=== PATIENT | female | born 2000 | race Two or more races ===

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

== ENCOUNTER 2018-01-12 14:55 | Inpatient (IN) | payer BC, SELFPAY ==
[2018-01-12 14:18] VITALS: BMI 25.6
[2018-01-12 14:46] LABS: ROM Internal Control Test YES-OK TO RESULT pt. (Internal QC)
[2018-01-12 14:47] LABS: ROM Patient Test POSITIVE (Negative)
[2018-01-12] MEDS: Lactated Ringers 1,000 ML 50 ML IV (15:00)
[2018-01-12 15:17] LABS: Differential Indicated MANUAL DIFF; Hemoglobin 11.9 g/dl (12.0-15.0); Mean Corpuscular Hgb 31.9 pg (27.0-32.0); Mean Corpuscular Volume 93.8 fL (81-99); Mean Platelet Vol. 11.2 fl (6.2-12.0); POSITIVE COUNT YES; POSITIVE DIFFERENTIAL NO; POSITIVE MORPHOLOGY YES; Platelet Count 203 K/mm3 (150-450); RBC Distribution Width CV 12.7 % (11.6-14.6); RBC Distribution Width SD 42.1 fl (35.1-43.9); Red Blood Count 3.73 M/mm3 (4.2-5.4); White Blood Count 21.3 K/mm3 (4.4-11.0)
[2018-01-12] MEDS: Oxytocin 30 units/NS 500 ml 30 UNITS/500 ML IV.SOLN IV (15:30)
--- NOTE | 2018-01-12 15:39 | HP.PCM_ITS ---
Problem List (1) premature rupture of membranes (PPROM) with unknown onset of labor Status: Acute History of Present Illness Date of Admission: 01/12/18 Chief Complaint: Leaking fluid, fever, contractions The patient is a 17 year old F [ at 28w3d ega with sudden onset of cramping and leaking amniotic fluid since 1330 today. Reports partner also ill with fevers, nausea and vomiting. care otherwise unremarkable. No chills, headache, vomiting.] Past Medical History Allergies Penicillins Allergy (Verified 01/12/18 14:56) Unknown Sulfa (Sulfonamide Antibiotics) Allergy (Verified 01/12/18 14:56) Unknown Home Medications: Ambulatory Orders Medication Instructions Recorded Vits [Prenatabs FA] 1 tablet PO DAILY 01/12/18 Surgical History: no surgical history Psychiatric History: No pertinent psych hx [employer]HER History: No pertinent FR[employer] CRUSHER history Lives: Spouse/ Significant Other Smoking Status: Current some day smoker Alcohol: None Drugs: None - *Family History Maternal History Items: No pertinent history Paternal History Items: No pertinent history Review of Systems Constitutional: Reports: Fever. Denies: Chills Eyes: Denies: Blurred vision Cardiovascular: Denies: Chest Pain, Chest Pressure, Chest Tightness, Edema Respiratory: Denies: Cough, Shortness of Breath Gastrointestinal: Reports: Abdominal Pain - cramping Genitourinary: Denies: Dysuria, Frequency VTE Information - Inpt Only VTE Present on Admission: No Reason prophylaxis not ordered:: Treatment Not Indicated Patient Problems: Active and Suspected Problems premature rupture of membranes (PPROM) with unknown onset of labor (Acute) Subjective: Appears feverish. No acute discomfort but feeling contractions. Objective: Temp 101F HR 120-130s BP normal FHR 150s moderate variability. - Physical Exam General: Alert, Oriented x3, Cooperative, No apparent distress Lungs: Clear to auscultation, Normal air movement Cardiovascular: Regular rate, Regular Rhythm Abdomen: Soft, Non Tender, Non-Distended, Gravid, Appropriate for Gestational Age Extremities: No edema Skin: No rashes Neurological: Neuro grossly intact Psych/Mental Status: Normal Affect Comment: CE 8 cm bloody show present, vertex presentation Weight: 140 lb Body Mass Index (BMI) 25.6 Laboratory Tests Past 24 Hrs 01/12/18 01/12/18 01/12/18 14:35 14:55 15:02 WBC 21.3 H RBC 3.73 L Hgb 11.9 L Hct 35.0 L MCV 93.8 MCH 31.9 MCHC 34.0 RDW 12.7 RDW Differential 42.1 Plt Count 203 MPV 11.2 Neut % (Auto) Not Reportable Absolute Neuts (auto) Not Reportable Total Counted Pending Vag Amniotic Fld Detect POSITIVE H Group B Strep DNA Pending Specimen Comment Pending Blood Type Antibody Screen 01/12/18 15:02 WBC RBC Hgb Hct MCV MCH MCHC RDW RDW Differential Plt Count MPV Neut % (Auto) Absolute Neuts (auto) Total Counted Vag Amniotic Fld Detect Group B Strep DNA Specimen Comment Blood Type Pending Antibody Screen Pending Assessment/Plan All Active Problems premature rupture of membranes (PPROM) with unknown onset of labor (Acute) PPROM likely due to chorioamnionitis. Plan to induce labor due to chorio and advanced labor. Betamethasone given. Magnesium sulfate given for neuroprotection 4 grams. Started on clindamycin and gentamicin. Will start pitocin augmentation. transport team is called and enroute for transport of as soon as possible after delivery. Diagnosis and findings explained to Louisa.
[2018-01-12 15:48] LABS: Lymphocyte 10 % (19-41); Myelocyte 1 (0-0); Neutrophil-Band 4 % (0-5); Neutrophil-Segmented 85 % (47-70); Total Cells Counted 100 (MANUAL DIFF)
[2018-01-12 15:51] LABS: Absolute Lymphocyte Count 2.13 X10^3/ul (0.83-4.51)
[2018-01-12] MEDS: Betamethasone/Betamethasone 30 MG/5 ML Vial 12 MG IM (16:13)
--- NOTE | 2018-01-12 16:19 | DCINST_ITS ---
Discharge Diet: No Restrictions Discharge Activity: Return to Normal Activity, May Drive, May Shower Return to work on:: 03/14/18 May resume sexual activity in: 4-6 weeks Call your doctor if your incision/area has: Sudden Increased Bleeding, Increased Pain/ Swelling, Foul Smelling Discharge Call your doctor if you observe: Fever of 101 or Higher, Inability to urinate, Inability to have a bowel movement, Using more than one pad per hour, Shortness of breath, Chest pain, Calf discomfort, Uncontrolled pain Cleanse incision/area with: Soap & Water Additional Instructions: If you experience any of the following, contact your healthcare provider. * Bleeding that soaks a pad every hour for 2 hours * Fever 100.4 or higher * Unrelieved incision or abdominal pain * Swelling, redness, discharge or bleeding from your incision or episiotomy site * Your incision begins to separate * Problems urinating (including inability to urinate or burning while urinating). * Visual changes * Severe headache * Flu-like symptoms * Pain or redness in one of both of your breasts * Pain, warmth, tenderness or swelling in your legs, especially the calf area * Frequent nausea and vomiting * Symptoms of depression or anxiety If you experience any of the following, call 911 or go to the nearest Emergency Room. * Chest pain * Problems breathing * Seizure activity * Partial or complete paralysis of a body part, slurred speech, weakness or drooping of the face, or a sudden inability to walk or hold your balance Allergies/Adverse Reactions: Allergies Penicillins Allergy (Verified 01/12/18 14:56) Unknown Sulfa (Sulfonamide Antibiotics) Allergy (Verified 01/12/18 14:56) Unknown Medications to take at Discharge Ibuprofen 600 mg PO 4X/DAY #30 tab 01/12/18 Vits [Prenatabs FA ] 1 tablet PO DAILY 01/12/18 The following prescriptions were given: Ibuprofen 600 mg PO 4X/DAY #30 tab Please Follow Up With: Andrez Farah MD When: 6 weeks Test Results: Test results from this visit will be discussed in further detail at your follow- up appointment, if applicable. Proposed Discharge Date: 01/12/18
[2018-01-12 16:33] LABS: Group B Strep DNA By PCR Negative (Negative); Internal Control PASS; Probe Check PASS; Specimen Processing Control PASS
[2018-01-12] MEDS: Oxytocin 30 units/NS 500 ml 30 UNITS/500 ML IV.SOLN 334 UNITS IV (16:36)
--- NOTE | 2018-01-12 16:50 | PCM.OB.VAG ---
- Problem List (1) premature rupture of membranes (PPROM) with unknown onset of labor Status: Acute Vaginal Delivery Maternal Presentation: Active Labor, - - PPROM Presented at 28w3d ega with SROM, fever, and active labor Method of Induction: Pitocin Medical Reason for Induction: - - Chorioamnionitis Amniotic Membrane Rupture Type: Spontaneous at home Rupture of Membrane time: 1330 Amniotic Fluid Description: Clear Final FABIOLA: 04/03/18 Final FABIOLA Source: US <20 weeks Gestational age: 29 Weeks and 2 Days doctor who attended delivery (if requested by OB): Anthony Cook Date of Procedure: 01/12/18 Pre-Operative Diagnosis: labor Post-Operative Diagnosis: same Surgery/ Procedure Performed: Spontaneous Vaginal Delivery Type of Anesthesia: None Description of Procedure: Progressed over about 1 1/2 hours to FD then pushed for about 10 minutes to deliver a live female . The cord was immediately clamped and cut and baby taken to warmer for care. Cord blood gases were obtained. The placenta delivered spontanouesly with a membranous cord insertion. There appeared to be a small abrupted area of the placenta. The uterus contracted well. Inspection revealed an intact cervix, upper and lower vagina and perineum. APGARs unavailable. Placental Delivery Description: Spontaneous Placenta Disposition: Sent with transport team Percentage of Placenta Abruption: 5 Cord Vessel Description: 3 Vessels Nuchal Cord Compression: Without compression Cord Gases drawn per routine: ABG, VBG Cord Entanglement: None Estimated Blood Loss: 400cc Infant A gender: Female Episiotomy Description: None Laceration: None Medications given after delivery: IV Pitocin Complications: None
[2018-01-12] MEDS: Acetaminophen 325 MG Tablet PO (17:03)
[2018-01-12] MEDS: Oxytocin 30 units/NS 500 ml 30 UNITS/500 ML IV.SOLN 167 UNITS IV (17:06)
[2018-01-12 18:06] LABS: Amphetamine Urine VISTA NEGATIVE (<1000 ng/mL); Barbiturate Urine VISTA NEGATIVE (< 200 ng/mL); Benzodiazepine Urine VISTA NEGATIVE (< 200 ng/mL); Cocaine Urine VISTA NEGATIVE (< 300 ng/mL); Ecstacy Urine VISTA NEGATIVE (< 500 ng/mL); Methadone Urine VISTA NEGATIVE (< 300 ng/mL); PCP Urine VISTA NEGATIVE (< 25 ng/mL); THC Urine VISTA NEGATIVE (< 50 ng/mL); Vista UDS pH Range 6
[2018-01-12] MEDS: 0.9% Saline Lock 10 ML Syringe IV (19:24)
[2018-01-12 19:28] VITALS: BP 107/66; PULSE 107; RESP 16; TEMP 37; O2SAT 98
--- NOTE | 2018-01-12 20:22 | NURSING ---
[facility] on unit 2012 for transport to [facility]. report given to transport team by this RN. Transport team assumed care at this time. pt transferred to [facility]. Off unit at 2020
[2018-01-16 12:53] LABS: Pathologist Review Reviewed
== END 2018-01-12 20:21 | disposition short-term general hospital (02) | DRG 805 ==
LOC: WPOUT 14:58
PROVIDERS: Admitting Provider Obstetrics & Gynecology; Referring Provider Obstetrics & Gynecology; Visit Provider Obstetrics & Gynecology
DX: O42.013 Preterm premature rupture of membranes, onset of labor within 24 hours of rupture, third trimester (principal); O41.1230 Chorioamnionitis, third trimester, not applicable or unspecified; Z37.0 Single live birth; O45.93 Premature separation of placenta, unspecified, third trimester; O99.334 Smoking (tobacco) complicating childbirth; Z3A.28 28 weeks gestation of pregnancy
CPT/HCPCS: 59025; 59050; 80307; 84112; 85025; 86850; 86900; 87040; 87081; 87086; 87653; 99218; J7120; A4216; G0378; J0702

== ENCOUNTER 2021-01-21 23:33 | Emergency (ER) | payer BC, SELFPAY ==
[2021-01-21 23:34] VITALS: BP 135/79; PULSE 96; RESP 16; TEMP 36.6; O2SAT 97; BMI 28.3
--- NOTE | 2021-01-21 23:47 | RAD_ITS ---
STUDY: X-RAY CHEST REASON FOR EXAM: Female, 20 years old. covid TECHNIQUE: Single AP portable view of the chest. COMPARISON: None. FINDINGS: The lungs are clear and expanded. There is no demonstrated pleural abnormality. Normal size heart. Normal mediastinum and walt. Normal visualized pulmonary arteries. Normal visualized aortic arch and descending thoracic aorta. Normal visualized thoracic spine. Normal visualized ribs, clavicles, and shoulders. There is no demonstrated abnormality of the visualized soft tissue structures of the upper abdomen. RAD/Chest 1 View IMPRESSION: Normal x-ray examination of the chest. Electronically Signed: Rigo Hernández MD at 0:17 EST Tel , Service support ,
--- NOTE | 2021-01-21 23:48 | EX.ED.DYSGE1 ---
HPI History of Present Illness Chief Complaint: General Illness Informant: patient Narrative Narrative: Patient started with nasal congestion slight sore throat on Tuesday about 5 days prior. She is then developed cough. She really has no significant dyspnea. She is able to eat and drink but states when she swallows food it just feels funny to her. Its not painful. She is able to do it. But she also has decreased appetite. She has some mild nausea. She has some mild diarrhea. She is able to drink liquids without any difficulty. She was tested positive for Covid a couple days ago. Her has similar symptoms. She denies fevers or myalgias. She has had lost taste and smell and thinks this is affecting this. She also thinks her anxiety about Covid is making this worse. No chronic medical conditions No medications Allergy to penicillin and sulfa Only surgeries wisdom teeth Lives with PFSH PFS Medical History no medical history Home Medications NK 01/21/21 [History Last Taken Unknown] Allergy/AdvReac Type Severity Reaction Status Date / Time Penicillins Allergy Unknown Verified 01/12/18 14:56 Sulfa (Sulfonamide Allergy Unknown Verified 01/12/18 14:56 Antibiotics) Surgical History no surgical history Social History Smoking Status: Current every day smoker tobacco type: cigarettes ROS ROS ED Constitutional Constitutional ED: Denies chills, fever(s) or subjective Eyes Eyes: Denies blurry vision ENT ENT ED: Reports rhinorrhea and sore throat; Denies ear pain Cardiovascular Cardiovascular: Denies chest pain Respiratory/Chest Respiratory/Chest: Reports cough; Denies dyspnea or sputum Gastrointestinal Gastrointestinal: Reports diarrhea and nausea; Denies abdominal pain or vomiting Genitourinary Genitourinary ED: Denies dysuria or hematuria Musculoskeletal Musculoskeletal: Denies myalgias Integumentary Denies rash Neurologic Neurologic: Denies headache(s) or weakness Psychiatric Psychiatric: Reports anxiety Endocrine Endocrinology: Denies polydipsia or polyuria Allergic/Immunologic Allergic/Immunologic ED: Denies urticaria EXAM Physical Exam Const Vital Signs: 01/21/21 23:34 Temperature 97.8 F Temperature Source Temporal Pulse Rate 96 Respiratory Rate 16 Blood Pressure 135/79 H Blood Pressure Mean 97 Pulse Ox 97 Oxygen Delivery Method Room Air Positive well nourished and well developed General Appearance ED: well developed and NAD HEENT Reports dry mucous membranes HEENT Narrative: Patient is voice is normal. She looks comfortable. Swallowing mechanism looks normal. Mucous membranes are somewhat dry. Tonsils are just minimally on the large side but they are not red. They have a normal color. There is no exudate. There is no lesions. There is no stridor when listening to the throat. There is no lymphadenopathy. Mouth ED: Yes dry mucous membranes Mouth: dry mucous membranes Eyes PERRL Neck no lymphadenopathy and no JVD General: Negative for tenderness Resp normal respiratory effort and clear to auscultation bilaterally Effort and Inspection: Negative for pain with movement Auscultation: Negative for rales, rhonchi or wheezes Cardio regular rate and regular rhythm GI normal to inspection, nondistended, normoactive bowel sounds and non-tender Palpation: soft Back/Spine no CVA tenderness Extremity normal to inspection Neuro Sensorium / Orientation: alert Psych mental status grossly normal Skin no rashes or lesions noted MDM MDM MDM Narrative Medical decision making narrative: Patient's 1 view x-ray looked at by me shows no sign of pneumothorax. No typical pattern seen with Covid. No sign of pneumonia. Cardiac silhouette looks normal. Patient is rechecked. Lidocaine did calm down her throat a bit. She drank any indication to do a CAT scan of her neck. I think she is a bit of a dry mouth. We discussed about increasing fluids and increasing some solid foods. We discussed foods that are easier and harder to swallow. Think she is safe to go home. I do not think she needs Decadron. Her sats are normal here. Discharge Plan Triage Chief Complaint: General Illness ED Provider: Hemant Kebede Dx/Rx/DC Orders Clinical Impression: COVID Instructions: Caring for Someone Who Has COVID-19 Prescriptions: No Action NK RF: 0 Primary Care Provider: Care Physician,No Primary Referrals: Yenifer Campbell DO [STAFF PHYSICIAN] - 1 Week if not improving Care Physician,No Primary [Primary Care Provider] - Disposition Disposition: Home, Self Care
[2021-01-21 23:54] VITALS: O2SAT 96
[2021-01-22 01:06] VITALS: BP 135/60; PULSE 87; RESP 18; O2SAT 99
== END 2021-01-22 01:06 | disposition home or self-care (01) ==
PROVIDERS: Emergency Provider Emergency Medicine
DX: U07.1 COVID-19 (principal); F17.210 Nicotine dependence, cigarettes, uncomplicated
CPT/HCPCS: 71045; 99283

== ENCOUNTER 2021-02-21 21:29 | Emergency (ER) | payer BC, SELFPAY ==
[2021-02-21 21:30] VITALS: BP 133/87; PULSE 89; RESP 14; TEMP 36.7; O2SAT 96; BMI 29.8
--- NOTE | 2021-02-21 22:06 | EDS_ITS ---
HPI History of Present Illness Chief Complaint: Nausea/Vomiting Informant: patient Onset/Context/Timing Onset: Hours (Few hours ago) Context: Sudden Onset Timing: Continuous and Waxes and wanes Quality: Burning Location: Chest Worsened by: Nothing Relieved by: Nothing Narrative Narrative: Patient presents with nausea, vomiting, diarrhea, and chest pain that began a few hours prior to arrival. Patient describes her pain as burning. Patient states it is over the epigastric area and radiates up into her chest. Patient states it has been waxing and waning. Patient states nothing makes it worse and nothing makes it better. Patient denies any fevers or chills. Pat ient does admit to a sore throat from the vomiting. Patient denies any shortness of breath. Patient denies any headaches, lightheadedness, or dizziness. PFSH PFSH Medical History no medical history no medical history Home Medications NK 01/21/21 [History Last Taken Unknown] Allergy/AdvReac Type Severity Reaction Status Date / Time Penicillins Allergy Unknown Verified 02/21/21 21:30 Sulfa (Sulfonamide Allergy Unknown Verified 02/21/21 21:30 Antibiotics) Surgical History Hx of wisdom tooth extraction Social History Smoking Status: Current every day smoker tobacco type: cigarettes ROS ROS ED Constitutional Constitutional ED: Denies chills or fever(s) Eyes Eyes: Denies blurry vision or change in vision ENT ENT ED: Denies rhinorrhea or sore throat Cardiovascular Cardiovascular: Reports chest pain; Denies palpitations Respiratory/Chest Respiratory/Chest: Denies cough or dyspnea Gastrointestinal Gastrointestinal: Reports abdominal pain, diarrhea, nausea and vomiting Genitourinary Genitourinary ED: Denies dysuria or hematuria Musculoskeletal Musculoskeletal: Denies back pain or neck pain Integumentary Denies abscess or rash Neurologic Neurologic: Denies headache(s) or weakness Allergic/Immunologic Allergic/Immunologic ED: Denies mouth swelling or urticaria EXAM Physical Exam Const Vital Signs: 02/21/21 21:30 02/21/21 21:49 Temperature 98.1 F Temperature Source Temporal Pulse Rate 89 Respiratory Rate 14 Respiratory Effort Normal Non-Labored Respiratory Pattern Normal Blood Pressure 133/87 H Blood Pressure Mean 102 Pulse Ox 96 Oxygen Delivery Method Room Air Positive well nourished and well developed General Appearance ED: well developed HEENT Reports moist mucous membranes Neck supple and no JVD Resp normal respiratory effort and clear to auscultation bilaterally Cardio regular rate, regular rhythm and no murmurs GI normal to inspection, nondistended, normoactive bowel sounds and non-tender Palpation: soft Extremity normal to inspection General Extremety ED: Negative for edema or tenderness General Extremity: Negative for edema Neuro oriented x3, CN's II-XII intact bilaterally and no sensory deficits noted Sensorium / Orientation: alert Motor Exam: strength 5/5 throughout Psych mental status grossly normal Skin no rashes or lesions noted MDM MDM MDM Narrative Medical decision making narrative: CBC was within normal limits. Comprehensive metabolic profile was within normal limits. Lipase was normal. Serum hCG was negative. Urinalysis does not show any evidence of urinary tract infection. Patient was ordered a GI cocktail which she declined. Patient states she has had these in the past and does not like the way it makes her feel. Patient was instructed to eat bland food. Patient was instructed to follow-up with her primary care physician in 5 to 7 days. Patient understood and was agreeable with the plan. All questions were answered. Lab Data Attestation: I reviewed the patient's lab results. Labs: Laboratory Results - last 24 hr 02/21/21 02/21/21 02/21/21 21:50 21:50 21:50 WBC 9.8 RBC 4.36 Hgb 13.7 Hct 40.6 MCV 93.1 MCH 31.4 MCHC 33.7 RDW Std Deviation 41.8 RDW Coeff of Jesus Manuel 12.2 Plt Count 275 MPV 11.1 Immature Gran % (Auto) 0.600 Neut % (Auto) 71.8 H Lymph % (Auto) 17.9 L Snyder % (Auto) 6.1 Eos % (Auto) 3.1 Baso % (Auto) 0.5 Absolute Neuts (auto) 7.1 Absolute Lymphs (auto) 1.76 Nucleated RBC % 0 Sodium 139 Potassium 3.8 Chloride 107 Carbon Dioxide 26.0 Anion Gap 6 BUN 11 Creatinine 0.80 Estim Creat Clear Calc 86.50 Est GFR (MDRD) Af Amer 114 Est GFR (MDRD) Non-Af 94 BUN/Creatinine Ratio 13.7 Glucose 97 Calcium 9.3 Total Bilirubin 0.30 AST 24 ALT 22 Alkaline Phosphatase 95 Total Protein 7.8 Albumin 4.0 Globulin 3.8 Albumin/Globulin Ratio 1.1 Lipase 88 Serum , Qual NEGATIVE Urine Color Urine Clarity Urine pH Ur Specific [place] Urine Protein Urine Glucose (UA) Urine Ketones Urine Occult Blood Urine Nitrite Urine Bilirubin Urine Urobilinogen Ur Leukocyte Esterase Urine RBC Urine WBC Ur Squamous Epith Cells Urine Bacteria Urine Mucus 02/21/21 21:50 WBC RBC Hgb Hct MCV MCH MCHC RDW Std Deviation RDW Coeff of Jesus Manuel Plt Count MPV Immature Gran % (Auto) Neut % (Auto) Lymph % (Auto) Snyder % (Auto) Eos % (Auto) Baso % (Auto) Absolute Neuts (auto) Absolute Lymphs (auto) Nucleated RBC % Sodium Potassium Chloride Carbon Dioxide Anion Gap BUN Creatinine Estim Creat Clear Calc Est GFR (MDRD) Af Amer Est GFR (MDRD) Non-Af BUN/Creatinine Ratio Glucose Calcium Total Bilirubin AST ALT Alkaline Phosphatase Total Protein Albumin Globulin Albumin/Globulin Ratio Lipase Serum , Qual Urine Color Straw Urine Clarity Clear Urine pH 7.0 Ur Specific [place] 1.005 Urine Protein Negative Urine Glucose (UA) Normal Urine Ketones Negative Urine Occult Blood Negative Urine Nitrite Negative Urine Bilirubin Negative Urine Urobilinogen Normal Ur Leukocyte Esterase Negative Urine RBC 0 SEEN Urine WBC 0 SEEN Ur Squamous Epith Cells 0 SEEN Urine Bacteria 0 SEEN Urine Mucus 0 SEEN Discharge Plan Triage Chief Complaint: Nausea/Vomiting ED Provider: Cornelio Chan Dx/Rx/DC Orders Clinical Impression: Gastritis Instructions: ED Gastritis (Adult) Prescriptions: No Action NK RF: 0 Primary Care Provider: Care Physician,No Primary Referrals: Maik Hogue MD [STAFF PHYSICIAN] - 5-7 Days Care Physician,No Primary [Primary Care Provider] - Disposition Disposition: Home, Self Care
[2021-02-21 22:19] LABS: Bacteria 0 SEEN /hpf (None Seen); Mucous, Urine 0 SEEN /hpf (<or=2+); Red Blood Cells-Urine 0 SEEN /hpf (0-5); Squamous Epithelial Cells - UA 0 SEEN /hpf (5-10); White Blood Cells 0 SEEN /hpf (0-5)
[2021-02-21] MEDS: 0.9% Normal Saline 1,000 ML 1000 ML IV (22:19)
[2021-02-21 22:20] LABS: Absolute Lymphocyte Count 1.76 X10^3/uL (0.83-4.51); Absolute Neutrophil Count 7.1 X10^3/uL (2.0-7.7); Basophil# 0.05 X10^3/uL; Basophil% 0.5 % (0-1); Eosinophils% 3.1 % (0-5); Hematocrit 40.6 % (37-47); Hemoglobin 13.7 g/dL (12.0-15.0); Lymphocyte # 1.76 X10^3/ul (0.83-4.51); Lymphocyte % 17.9 % (19-41); Mean Corp Hgb Conc 33.7 g/dL (32-36); Mean Corpuscular Hgb 31.4 pg (27.0-32.0); Mean Corpuscular Volume 93.1 fL (81-99); Mean Platelet Vol. 11.1 fl (6.2-12.0); Monocyte% 6.1 % (0-10); NRBC Flagged by Analyzer 0 % (0-5); Neutrophil # 7.06 X10^3/uL (2.7-7.7); Neutrophil % 71.8 % (47-70); Platelet Count 275 K/mm3 (150-450); RBC Distribution Width CV 12.2 % (11.6-14.6); RBC Distribution Width SD 41.8 fl (35.1-43.9); Red Blood Count 4.36 M/mm3 (4.2-5.4); White Blood Count 9.8 K/mm3 (4.4-11.0)
[2021-02-21 22:21] LABS: Color, Urine Straw (Yellow); Glucose, Dipstick Normal (Normal); Ketone-Dipstick Negative (Negative); Leukocyte Esterase-Dipstick Negative /ul (Negative); Nitrite-Dipstick Negative (Negative); Occult Blood-Urine Negative /ul (Negative); Protein-Dipstick Negative (Negative); Specific Gravity, Urine 1.005 (1.002-1.030); Urine Bilirubin Dipstick Negative (Negative); Urine Clarity Clear (Clear); Urine Urobilinogen Normal (Normal)
[2021-02-21 22:52] LABS: Internal QC Validated? YES +Cl - CLEAR BKGD; Pregnancy, Serum, hCG Quali. NEGATIVE Negative
[2021-02-21 22:56] LABS: ALB/GLOB Ratio 1.1 RATIO (0.9-2.4); AST(SGOT) 24 U/L (15-37); Alanine Aminotransfer ALT/SGPT 22 U/L (13-56); Alkaline Phosphatase 95 U/L (45-117); Anion Gap 6 (5-15); BUN 11 mg/dL (7-18); BUN/Creat Ratio 13.7 RATIO (10-20); Calcium,Total 9.3 mg/dL (8.5-10.1); Chloride 107 mmol/L (98-107); EST Glomerular Filtration Rate 94 mL/min (>60); Est Glom Filt Rate - Afr Amer 114 mL/min (>60); Globulin 3.8 g/dL (2.2-4.2); Glucose 97 mg/dL (74-106); Lipase 88 U/L (73-393); Potassium 3.8 mmol/L (3.5-5.1); Protein, Total 7.8 g/dL (6.4-8.2); Sodium Level 139 mmol/L (136-145)
[2021-02-21 23:39] VITALS: BP 118/75; PULSE 78; O2SAT 98
== END 2021-02-21 23:41 | disposition home or self-care (01) ==
PROVIDERS: Emergency Provider Emergency Medicine
DX: K29.70 Gastritis, unspecified, without bleeding (principal); F17.210 Nicotine dependence, cigarettes, uncomplicated
CPT/HCPCS: 80053; 81001; 83690; 84703; 85025; 96360; 99284; J7030; A4216

== ENCOUNTER 2021-02-24 20:57 | Emergency (ER) | payer BC, SELFPAY ==
[2021-02-24 20:58] VITALS: BP 151/96; PULSE 116; RESP 14; TEMP 36.6; O2SAT 98; BMI 28.3
[2021-02-24 22:02] LABS: Bacteria 0 SEEN /hpf (None Seen); Mucous, Urine 0 SEEN /hpf (<or=2+); Red Blood Cells-Urine 0 SEEN /hpf (0-5); Squamous Epithelial Cells - UA 0 SEEN /hpf (5-10); White Blood Cells 0 SEEN /hpf (0-5)
[2021-02-24 22:06] LABS: Color, Urine Yellow (Yellow); Glucose, Dipstick Normal (Normal); Ketone-Dipstick Negative (Negative); Leukocyte Esterase-Dipstick Negative /ul (Negative); Nitrite-Dipstick Negative (Negative); Occult Blood-Urine Negative /ul (Negative); Protein-Dipstick Negative (Negative); Specific Gravity, Urine 1.005 (1.002-1.030); Urine Bilirubin Dipstick Negative (Negative); Urine Clarity Clear (Clear); Urine Urobilinogen Normal (Normal)
[2021-02-24 22:12] LABS: Absolute Lymphocyte Count 0.61 X10^3/uL (0.83-4.51); Absolute Neutrophil Count 12.3 X10^3/uL (2.0-7.7); Basophil# 0.03 X10^3/uL; Basophil% 0.2 % (0-1); Eosinophil# 0.08 X10^3/uL; Eosinophils% 0.6 % (0-5); Hemoglobin 14.8 g/dL (12.0-15.0); Lymphocyte # 0.61 X10^3/ul (0.83-4.51); Lymphocyte % 4.5 % (19-41); Mean Corp Hgb Conc 33.6 g/dL (32-36); Mean Corpuscular Hgb 31.2 pg (27.0-32.0); Mean Corpuscular Volume 92.6 fL (81-99); Monocyte# 0.53 X10^3/uL; Monocyte% 3.9 % (0-10); NRBC Flagged by Analyzer 0 % (0-5); Neutrophil # 12.27 X10^3/uL (2.7-7.7); Neutrophil % 90.5 % (47-70); Platelet Count 245 K/mm3 (150-450); RBC Distribution Width SD 41.1 fl (35.1-43.9); Red Blood Count 4.75 M/mm3 (4.2-5.4); White Blood Count 13.6 K/mm3 (4.4-11.0)
[2021-02-24 22:23] LABS: Internal QC Validated? YES +Cl - CLEAR BKGD; Pregnancy, Serum, hCG Quali. NEGATIVE Negative
[2021-02-24 22:25] LABS: Anion Gap 9 (5-15); BUN 9 mg/dL (7-18); BUN/Creat Ratio 12.1 RATIO (10-20); Calcium,Total 9.2 mg/dL (8.5-10.1); Chloride 104 mmol/L (98-107); Creatinine, Serum 0.74 mg/dL (0.55-1.02); EST Glomerular Filtration Rate 103 mL/min (>60); Est Glom Filt Rate - Afr Amer 125 mL/min (>60); Estimated Creatinine Clearance 93.51 ml/min; Glucose 94 mg/dL (74-106); Potassium 3.5 mmol/L (3.5-5.1); Sodium Level 140 mmol/L (136-145)
--- NOTE | 2021-02-24 23:23 | CT_ITS ---
STUDY: CT ABDOMEN AND PELVIS WITH CONTRAST REASON FOR EXAM: Female, 21 years old. Diffuse abdominal pain, vomiting RADIATION DOSAGE (If Supplied By Facility): CTDIvol = ( 10.04 ) mGy, DLP = ( 681.12 ) mGycm TECHNIQUE: Transaxial images were obtained from the dome of the diaphragm to the symphysis pubis without oral contrast. IV 100mL [id number]-[id number] was administered. Sagittal and coronal images were reconstructed. Individualized dose optimization techniques were used for this CT. COMPARISON: None. FINDINGS: The visualized lung bases are unremarkable. The visualized portions of the heart are within normal limits. Normal liver. Normal gallbladder and extrahepatic biliary system. Normal spleen. Normal pancreas. Normal bilateral adrenal glands. Normal right kidney. Normal left kidney. Normal visualized stomach. There are mildly distended loops of small bowel present. There is a fluid-filled appearance of the cecum. There is a mildly thick-walled appearance of the distal small bowel. There is small mesenteric lymph nodes measuring up to 6.2 mm. There is mild to moderate stool in the colon. The appendix is visualized and appears normal. Normal abdominal aorta. Normal inferior vena cava. Normal retroperitoneum. Normal urinary bladder. Normal visualized uterus. There is a small umbilical hernia containing fat. There is minimal spondylosis at the level of L5-S1. CT/Abdomen/Pelvis W IV Cont ONLY IMPRESSION: Findings are suspicious for enteritis. No appendicitis. No hydronephrosis. Electronically Signed: Arianna Aquino MD at 0:18 EST Tel , Service support ,
--- NOTE | 2021-02-24 23:24 | EDS_ITS ---
HPI HPI - GI History of Present Illness Chief Complaint: Abd Pain Informant: patient Abdominal Pain/Flank Pain Onset: Days (4) Context: Gradual Onset Timing: Continuous Quality: Aching Location: Diffuse (across mid abd, periumbilical) Current Severity: Moderate Maximum Severity: Moderate Worsened by: - (vomiting) Relieved by: Nothing Nausea/Vomiting/Emesis GI Symptom: Positive for Nausea and Vomiting Onset: Days (4) Quality: Positive for Nonbilious; Negative for Blood streaks, Coffee ground and Hematemesis Severity: Severe Diarrhea/Melena/Hematochezia GI Symptom: Positive for Diarrhea; Negative for Melena and Hematochezia Stool Quality: Positive for Loose and Watery Severity: Moderate (2-3 per day) Associated Symptoms Associated Symptoms: Negative for Dysuria, Frequency, Hematuria and Urgency PFSH PFSH Medical History no medical history no medical history Home Medications dicyclomine 20 mg PO Q6H PRN #20 capsule 02/25/21 [Rx Last Taken Unknown] ondansetron 8 mg PO Q8H PRN PRN #20 tab 02/25/21 [Rx Last Taken Unknown] Allergy/AdvReac Type Severity Reaction Status Date / Time Penicillins Allergy Unknown Verified 02/24/21 20:59 Sulfa (Sulfonamide Allergy Unknown Verified 02/24/21 20:59 Antibiotics) Surgical History Hx of wisdom tooth extraction Social History Smoking Status: Current every day smoker tobacco type: cigarettes ROS ROS ED Constitutional Constitutional ED: Reports chills, subjective and other Details: unk if any fevers Eyes Eyes: Denies change in vision or diplopia ENT ENT ED: Denies rhinorrhea or sore throat Cardiovascular Cardiovascular: Denies chest pain or palpitations Respiratory/Chest Respiratory/Chest: Denies cough or dyspnea Gastrointestinal Gastrointestinal: Reports as per HPI, abdominal pain, diarrhea, nausea and vomiting Genitourinary Genitourinary ED: Denies dysuria or hematuria Musculoskeletal Musculoskeletal: Denies back pain or neck pain Integumentary Denies abscess or rash Neurologic Neurologic: Denies headache(s), paresthesias or weakness Psychiatric Psychiatric: Denies anxiety or suicidal thoughts EXAM Physical Exam Const Vital Signs: 02/24/21 20:58 02/25/21 01:57 Temperature 98 F Temperature Source Temporal Pulse Rate 116 H Respiratory Rate 14 16 Blood Pressure 151/96 H Blood Pressure Mean 114 Pulse Ox 98 Oxygen Delivery Method Room Air Positive well nourished and well developed Constitutional Narrative: Well-appearing, nad General Appearance ED: well developed and NAD HEENT Reports moist mucous membranes normocephalic and atraumatic Eyes PERRL and EOMs intact bilaterally Neck full ROM and supple Resp normal respiratory effort and clear to auscultation bilaterally Cardio regular rate, regular rhythm and no murmurs GI non-distended GI Narrative: mildly tender periumbilical only; no McBurney's pt or RUQ/LUQ/LLQ tenderness Auscultation: normoactive bowel sounds Palpation: soft Back/Spine no CVA tenderness General Back: other FROM Extremity normal to inspection General Extremety ED: Negative for edema, pulses abnormal or tenderness General Extremity: Negative for edema or pulses abnormal Neuro oriented x3, CN's II-XII intact bilaterally, moves all extremities, no focal motor deficits, no sensory deficits noted and gait normal Sensorium / Orientation: awake and alert Motor Exam: strength 5/5 throughout Skin no rashes or lesions noted and no wounds MDM MDM MDM Narrative Medical decision making narrative: Patient was given IV fluids, Zofran, dicyclomine, she is feeling much better. Given her mild leukocytosis and repeat visit, a performed a CT scan. It was nonspecific, showing signs of enteritis. Given that, certainly possible and most likely she has a viral etiology of her illness that should be self-limiting. She has had no blood or symptoms of invas linda enteritis. Therefore at this time I recommend supportive care and follow- up, we discussed reasons to return she comfortable with that plan prescribed dicyclomine and ondansetron to use as needed. Lab Data Attestation: I reviewed the patient's lab results. Labs: Laboratory Results - last 24 hr 02/24/21 02/24/21 02/24/21 21:56 22:05 22:05 WBC 13.6 H RBC 4.75 Hgb 14.8 Hct 44.0 MCV 92.6 MCH 31.2 MCHC 33.6 RDW Std Deviation 41.1 RDW Coeff of Jesus Manuel 12.0 Plt Count 245 MPV 11.0 Immature Gran % (Auto) 0.300 Neut % (Auto) 90.5 H Lymph % (Auto) 4.5 L [place] % (Auto) 3.9 Eos % (Auto) 0.6 Baso % (Auto) 0.2 Absolute Neuts (auto) 12.3 H Absolute Lymphs (auto) 0.61 L Nucleated RBC % 0 Sodium 140 Potassium 3.5 Chloride 104 Carbon Dioxide 27.0 Anion Gap 9 BUN 9 Creatinine 0.74 Estim Creat Clear Calc 93.51 Est GFR (MDRD) Af Amer 125 Est GFR (MDRD) Non-Af 103 BUN/Creatinine Ratio 12.1 Glucose 94 Calcium 9.2 Serum , Qual Urine Color Yellow Urine Clarity Clear Urine pH 7.0 Ur Specific [place] 1.005 Urine Protein Negative Urine Glucose (UA) Normal Urine Ketones Negative Urine Occult Blood Negative Urine Nitrite Negative Urine Bilirubin Negative Urine Urobilinogen Normal Ur Leukocyte Esterase Negative Urine RBC 0 SEEN Urine WBC 0 SEEN Ur Squamous Epith Cells 0 SEEN Urine Bacteria 0 SEEN Urine Mucus 0 SEEN 02/24/21 22:05 WBC RBC Hgb Hct MCV MCH MCHC RDW Std Deviation RDW Coeff of Jesus Manuel Plt Count MPV Immature Gran % (Auto) Neut % (Auto) Lymph % (Auto) [place] % (Auto) Eos % (Auto) Baso % (Auto) Absolute Neuts (auto) Absolute Lymphs (auto) Nucleated RBC % Sodium Potassium Chloride Carbon Dioxide Anion Gap BUN Creatinine Estim Creat Clear Calc Est GFR (MDRD) Af Amer Est GFR (MDRD) Non-Af BUN/Creatinine Ratio Glucose Calcium Serum , Qual NEGATIVE Urine Color Urine Clarity Urine pH Ur Specific [place] Urine Protein Urine Glucose (UA) Urine Ketones Urine Occult Blood Urine Nitrite Urine Bilirubin Urine Urobilinogen Ur Leukocyte Esterase Urine RBC Urine WBC Ur Squamous Epith Cells Urine Bacteria Urine Mucus Radiography Diagnostic Testing: Clinical Impression(s) from Imaging Studies Abdomen/Pelvis CT 02/24/21 23:23 IMPRESSION: Findings are suspicious for enteritis. No appendicitis. No hydronephrosis. Electronically Signed: Arianna Aquino MD at 0:18 EST Tel , Service support , Discharge Plan Triage Chief Complaint: Abd Pain ED Provider: Alex Matta Dx/Rx/DC Orders Clinical Impression: Gastroenteritis Instructions: ED Food Poison Or Gastroenteritis Prescriptions: New ondansetron [ondansetron] 4 MG tablet 8 mg PO Q8H PRN PRN (Reason: Nausea) Qty: 20 RF: 0 dicyclomine 10 MG capsule 20 mg PO Q6H PRN (Reason: abdominal discomfort) Qty: 20 RF: 0 Primary Care Provider: Care Physician,No Primary Referrals: Marian Ge [NON-STAFF] - 3-5 Days if not improving Care Physician,No Primary [Primary Care Provider] - Disposition Disposition: Home, Self Care
[2021-02-24] MEDS: Ondansetron 4 MG/2 ML Vial IV (23:46)
[2021-02-24] MEDS: Dicyclomine 20 MG/2 ML Vial IM (23:46)
[2021-02-24] MEDS: 0.9% Normal Saline 1,000 ML 999 ML IV (23:46)
[2021-02-25 01:57] VITALS: RESP 16
[2021-02-25 03:37] VITALS: BP 120/64; PULSE 90; RESP 16; O2SAT 97
== END 2021-02-25 03:40 | disposition home or self-care (01) ==
PROVIDERS: Emergency Provider Emergency Medicine
DX: K52.9 Noninfective gastroenteritis and colitis, unspecified (principal); F17.210 Nicotine dependence, cigarettes, uncomplicated
CPT/HCPCS: 74177; 80048; 81001; 84703; 85025; 96361; 96372; 96374; 99283; J7030; Q9967; A4216; J2405

== ENCOUNTER → 2021-09-01 | Outpatient (CLI) | payer BC, SELFPAY ==
[2021-09-03 22:07] LABS: Chlamydia By Nucleic Acid AMP Negative (Negative)
[2021-09-03 22:23] LABS: Gonococcus By Nucleic Acid AMP Negative (Negative)
[2021-09-04 15:55] LABS: HPV Reflexed? NOT INDICATED
== END | disposition home or self-care (01) ==
LOC: LABSPEC 16:41
PROVIDERS: Visit Provider Obstetrics & Gynecology
DX: Z12.4 Encounter for screening for malignant neoplasm of cervix (principal)
CPT/HCPCS: 87491; 87591; 88175; G0145

== ENCOUNTER → 2021-10-22 | Outpatient (CLI) | payer BC, SELFPAY ==
[2021-10-22 16:31] LABS: Absolute Neutrophil Count 9.1 X10^3/uL (2.0-7.7); Basophil# 0.03 X10^3/uL; Basophil% 0.3 % (0-1); Eosinophil# 0.16 X10^3/uL; Eosinophils% 1.4 % (0-5); Hematocrit 35.5 % (37-47); Hemoglobin 11.9 g/dL (12.0-15.0); Mean Corp Hgb Conc 33.5 g/dL (32-36); Mean Corpuscular Hgb 31.4 pg (27.0-32.0); Mean Corpuscular Volume 93.7 fL (81-99); Mean Platelet Vol. 12.1 fl (6.2-12.0); Monocyte# 0.53 X10^3/uL; Monocyte% 4.6 % (0-10); NRBC Flagged by Analyzer 0 % (0-5); Neutrophil # 9.11 X10^3/uL (2.7-7.7); Neutrophil % 79.2 % (47-70); Platelet Count 228 K/mm3 (150-450); RBC Distribution Width CV 12.5 % (11.6-14.6); RBC Distribution Width SD 43.2 fl (35.1-43.9); Red Blood Count 3.79 M/mm3 (4.2-5.4); White Blood Count 11.5 K/mm3 (4.4-11.0)
[2021-10-23 11:25] LABS: HIV - WCH Non-Reactive (Nonreactive); Hepatitis B Surface Antigen Non-Reactive (Nonreactive); Hepatitis C Antibody Non-Reactive (Nonreactive); Rubella IgG Reactive (Nonreactive); Syphilis Antibodies Non-reactive
[2021-10-24 09:38] LABS: V-Zoster IgG (Immunity) 288 index (Immune >165)
== END | disposition home or self-care (01) ==
LOC: WOBLAB 14:17
PROVIDERS: Visit Provider Student in an Organized Health Care Education/Training Program
DX: Z34.82 Encounter for supervision of other normal pregnancy, second trimester (principal)
CPT/HCPCS: 36415; 85025; 86703; 86762; 86780; 86787; 86803; 87086; 87340

== ENCOUNTER → 2022-01-20 | Outpatient (CLI) | payer BC, SELFPAY ==
[2022-01-20 15:07] LABS: Absolute Lymphocyte Count 1.45 X10^3/uL (0.83-4.51); Absolute Neutrophil Count 10.4 X10^3/uL (2.0-7.7); Basophil# 0.09 X10^3/uL; Basophil% 0.7 % (0-1); Eosinophil# 0.16 X10^3/uL; Eosinophils% 1.2 % (0-5); Hemoglobin 11.7 g/dL (12.0-15.0); Lymphocyte # 1.45 X10^3/ul (0.83-4.51); Lymphocyte % 10.8 % (19-41); Mean Corp Hgb Conc 32.5 g/dL (32-36); Mean Corpuscular Hgb 30.1 pg (27.0-32.0); Mean Corpuscular Volume 92.5 fL (81-99); Mean Platelet Vol. 11.6 fl (6.2-12.0); Monocyte% 5.2 % (0-10); NRBC Flagged by Analyzer 0 % (0-5); Neutrophil # 10.38 X10^3/uL (2.7-7.7); Neutrophil % 77.5 % (47-70); Platelet Count 240 K/mm3 (150-450); RBC Distribution Width CV 13.1 % (11.6-14.6); RBC Distribution Width SD 44.5 fl (35.1-43.9); Red Blood Count 3.89 M/mm3 (4.2-5.4); White Blood Count 13.4 K/mm3 (4.4-11.0)
[2022-01-20 15:14] LABS: Glucose Challenge Gest 1H 50g 128 mg/dL (70-140)
== END | disposition home or self-care (01) ==
LOC: WOBLAB 14:37
PROVIDERS: Visit Provider Obstetrics & Gynecology
DX: Z34.83 Encounter for supervision of other normal pregnancy, third trimester (principal)
CPT/HCPCS: 36415; 82950; 85025

== ENCOUNTER → 2022-03-09 | Outpatient (CLI) | payer OTHER, SELFPAY ==
[2022-03-09 17:00] LABS: Absolute Lymphocyte Count 1.83 X10^3/uL (0.83-4.51); Absolute Neutrophil Count 11.7 X10^3/uL (2.0-7.7); Basophil# 0.08 X10^3/uL; Basophil% 0.5 % (0-1); Eosinophil# 0.13 X10^3/uL; Eosinophils% 0.9 % (0-5); Hemoglobin 11.4 g/dL (12.0-15.0); Lymphocyte # 1.83 X10^3/ul (0.83-4.51); Lymphocyte % 12.4 % (19-41); Mean Corp Hgb Conc 32.6 g/dL (32-36); Mean Corpuscular Hgb 29.6 pg (27.0-32.0); Mean Corpuscular Volume 90.9 fL (81-99); Mean Platelet Vol. 11.8 fl (6.2-12.0); Monocyte# 0.62 X10^3/uL; Monocyte% 4.2 % (0-10); NRBC Flagged by Analyzer 0 % (0-5); Neutrophil # 11.71 X10^3/uL (2.7-7.7); Neutrophil % 79.4 % (47-70); Platelet Count 257 K/mm3 (150-450); RBC Distribution Width CV 13.6 % (11.6-14.6); RBC Distribution Width SD 44.7 fl (35.1-43.9); Red Blood Count 3.85 M/mm3 (4.2-5.4); White Blood Count 14.8 K/mm3 (4.4-11.0)
[2022-03-09 17:51] LABS: Syphilis Antibodies Non-reactive
== END | disposition home or self-care (01) ==
LOC: WOBLAB 16:12
PROVIDERS: Visit Provider Obstetrics & Gynecology
DX: Z34.83 Encounter for supervision of other normal pregnancy, third trimester (principal); Z36.85 Encounter for antenatal screening for Streptococcus B
CPT/HCPCS: 36415; 85025; 86780; 87081

== ENCOUNTER 2022-03-17 19:26 | Inpatient (IN) | payer OTHER, SELFPAY ==
[2022-03-17] VITALS (7 sets, daily range): BP systolic 121–132; BP diastolic 70–75; PULSE 79–100; TEMP 36.4–37; O2SAT 96–98; BMI 32.8
[2022-03-17] MEDS: Lactated Ringers 1,000 ML 50 ML IV (20:20)
[2022-03-17 20:40] LABS: Absolute Lymphocyte Count 1.88 X10^3/uL (0.83-4.51); Absolute Neutrophil Count 12.3 X10^3/uL (2.0-7.7); Basophil# 0.07 X10^3/uL; Basophil% 0.5 % (0-1); Eosinophil# 0.11 X10^3/uL; Eosinophils% 0.7 % (0-5); Hematocrit 34.1 % (37-47); Hemoglobin 11.1 g/dL (12.0-15.0); Lymphocyte # 1.88 X10^3/ul (0.83-4.51); Lymphocyte % 12.2 % (19-41); Mean Corp Hgb Conc 32.6 g/dL (32-36); Mean Corpuscular Hgb 29.3 pg (27.0-32.0); Mean Platelet Vol. 11.9 fl (6.2-12.0); Monocyte# 0.81 X10^3/uL; Monocyte% 5.2 % (0-10); NRBC Flagged by Analyzer 0 % (0-5); Neutrophil % 79.5 % (47-70); Platelet Count 238 K/mm3 (150-450); RBC Distribution Width CV 13.8 % (11.6-14.6); RBC Distribution Width SD 45.3 fl (35.1-43.9); Red Blood Count 3.79 M/mm3 (4.2-5.4); White Blood Count 15.5 K/mm3 (4.4-11.0)
[2022-03-17 20:40] LABS: Mucous, Urine 0 SEEN /hpf (<or=2+); Red Blood Cells-Urine 0 SEEN /hpf (0-5); Squamous Epithelial Cells - UA 0 SEEN /hpf (5-10)
[2022-03-17 20:53] LABS: Color, Urine Straw (Yellow); Glucose, Dipstick Normal (Normal); Ketone-Dipstick 5 mg/dl (Negative); Leukocyte Esterase-Dipstick 25 /ul (Negative); Nitrite-Dipstick Negative (Negative); Occult Blood-Urine Negative /ul (Negative); Protein-Dipstick Negative (Negative); Urine Bilirubin Dipstick Negative (Negative); Urine Clarity Clear (Clear); Urine Urobilinogen Normal (Normal)
[2022-03-17 20:56] LABS: Protein, Urine (Random) 7.6 mg/dL (<11.9); Protein:Creat Ratio 497 mg/g CRE (0-200)
[2022-03-17 20:58] LABS: ALB/GLOB Ratio 0.7 RATIO (0.9-2.4); AST(SGOT) 29 U/L (15-37); Alanine Aminotransfer ALT/SGPT 25 U/L (13-56); Albumin, Serum 2.8 g/dL (3.2-5.0); Alkaline Phosphatase 216 U/L (45-117); Anion Gap 8 (5-15); BUN 8 mg/dL (7-18); BUN/Creat Ratio 13.8 RATIO (10-20); Calcium,Total 8.8 mg/dL (8.5-10.1); Chloride 110 mmol/L (98-107); Creatinine, Serum 0.58 mg/dL (0.55-1.02); EST Glomerular Filtration Rate 136 mL/min (>60); Est Glom Filt Rate - Afr Amer 165 mL/min (>60); Estimated Creatinine Clearance 118.29 ml/min; Globulin 4.3 g/dL (2.2-4.2); Glucose 73 mg/dL (74-106); LDH 196 U/L (84-246); Potassium 3.3 mmol/L (3.5-5.1); Protein, Total 7.1 g/dL (6.4-8.2); Sodium Level 140 mmol/L (136-145)
[2022-03-17 21:07] LABS: Bacteria RARE /hpf (None Seen); White Blood Cells 0-5 SEEN /hpf (0-5)
[2022-03-17] MEDS: Oxytocin 15 Units/NS 250ml 15 UNITS/250 ML IV.SOLN 2 UNITS IV (22:18)
[2022-03-18] VITALS (16 sets, daily range): BP systolic 100–152; BP diastolic 48–89; PULSE 59–97; RESP 16–17; TEMP 36.5–37.7; O2SAT 96–98
[2022-03-18] MEDS: LACTATED RINGERS 500 ML 999 ML IV (01:05)
--- NOTE | 2022-03-18 01:57 | PCM.HP.BLA ---
History and Physical Date of Admission: 03/17/22 Chief complaint: Induction of labor Pree without severe features History present illness: 22-year-old G2, P1 at 37 weeks and 1 day on arrival with FABIOLA 04/06/2022 arrives for induction of labor for pre-E without severe features. Denies headache, vision change, chest pain, shortness of breath, nausea vomit, right upper quadrant pain. Patient states good movement. is complicated by preeclampsia without severe features and history of P PROM at 28 weeks Obstetrical history: G1: 28-week P PROM female 2 pounds 9 ounces G2: Current Past medical history: None Medications: vitamin Past surgical history: [place] teeth extraction Allergies: Sulfa, penicillin Social history: 1 pack/day smoker, denies alcohol or drug use Family history: Denies history DVT or PE Review of systems: Besides above pertinent positives a full review of systems was performed and found to be negative Physical exam: Vitals: Blood pressure 126/76 pulse 86 General: Normal-appearing no acute distress HEENT: Normocephalic/atraumatic no cervical lymphadenopathy Cardiac/respiratory: No use of accessory muscles, nonlabored breathing Abdomen: Soft, nontender, gravid Extremities: No peripheral edema normal peripheral pulses Psych: Normal affect normal demeanor nonpressured speech Labs: White blood cell count 15.5 hemoglobin 11.1 hematocrit 34.1% platelets 238. Sodium 140 potassium 3.3 creatinine 0.58 AST 29 ALT 25. Blood type a positive antibody negative Assessment and plan: 26-year-old G2, P1 at 37 weeks and 1 day for induction of labor with preeclampsia without severe features. Called by nursing initially with cervical exam and given Pitocin orders. Later called by nursing for delivery. Please refer to delivery note. Preeclampsia without severe features, asymptomatic. We will continue to monitor blood pressures. GBS negative
[2022-03-18] MEDS: miSOPROStol 200 MCG Tablet 1000 MCG RC (02:17)
--- NOTE | 2022-03-18 02:23 | EX.PCM.OBRPT ---
Vaginal Delivery Findings Description of Procedure: Arrived to room with bulging membranes and complete dilation, AROM thin meconium. Drafter Structural called. Normal spontaneous vaginal delivery of a viable female infant, vertex DONOVAN. Head and shoulders delivered with ease. Cord clamped and cut. Baby handed off to patient. Placenta delivered via cord traction and fundal massage. IV oxytocin initiated in order to facilitate uterine contractions. Cytotec at 1000 mcg given prophylactically with short second stage of labor. Placenta appeared intact, bedside ultrasound performed with thin endometrial lining. No lacerations noted. EBL 250 cc Apgars 8/9
[2022-03-18] MEDS: Acetaminophen 500 MG Tablet 1000 MG PO ×2 (03:04→22:24)
[2022-03-18] MEDS: Ibuprofen 600 MG Tablet PO ×2 (07:14→16:46)
[2022-03-19] VITALS: BP 112/48; PULSE 68; RESP 15; TEMP 36.6
[2022-03-19 04:30] VITALS: BP 122/69; PULSE 71; RESP 17; TEMP 36.7
[2022-03-19 06:07] LABS: Absolute Lymphocyte Count 1.86 X10^3/uL (0.83-4.51); Basophil# 0.05 X10^3/uL; Basophil% 0.5 % (0-1); Eosinophil# 0.22 X10^3/uL; Eosinophils% 2.2 % (0-5); Hemoglobin 10.9 g/dL (12.0-15.0); Lymphocyte # 1.86 X10^3/ul (0.83-4.51); Lymphocyte % 18.8 % (19-41); Mean Corpuscular Volume 90.9 fL (81-99); Mean Platelet Vol. 11.5 fl (6.2-12.0); Monocyte# 0.65 X10^3/uL; Monocyte% 6.6 % (0-10); NRBC Flagged by Analyzer 0 % (0-5); Neutrophil % 70.6 % (47-70); Platelet Count 216 K/mm3 (150-450); RBC Distribution Width CV 13.8 % (11.6-14.6); RBC Distribution Width SD 46.5 fl (35.1-43.9); Red Blood Count 3.63 M/mm3 (4.2-5.4); White Blood Count 9.9 K/mm3 (4.4-11.0)
[2022-03-19 06:34] LABS: ALB/GLOB Ratio 0.6 RATIO (0.9-2.4); AST(SGOT) 32 U/L (15-37); Alanine Aminotransfer ALT/SGPT 25 U/L (13-56); Albumin, Serum 2.2 g/dL (3.2-5.0); Alkaline Phosphatase 182 U/L (45-117); Anion Gap 7 (5-15); BUN 9 mg/dL (7-18); BUN/Creat Ratio 15.2 RATIO (10-20); Calcium,Total 8.4 mg/dL (8.5-10.1); Chloride 111 mmol/L (98-107); Creatinine, Serum 0.59 mg/dL (0.55-1.02); EST Glomerular Filtration Rate 133 mL/min (>60); Est Glom Filt Rate - Afr Amer 160 mL/min (>60); Estimated Creatinine Clearance 116.29 ml/min; Globulin 3.8 g/dL (2.2-4.2); Glucose 75 mg/dL (74-106); Potassium 3.8 mmol/L (3.5-5.1); Sodium Level 141 mmol/L (136-145)
--- NOTE | 2022-03-19 06:47 | PCM.PN.OB ---
Subjective Subjective Feeling well. No headaches or vision changes, chest pain or shortness of breath, nausea or vomiting. Lochia minimal. Breast-feeding. Objective Data Objective Data Vital Signs: Vital Signs Temp Pulse Resp BP Pulse Ox O2 Del Method 98.0 F 71 17 122/69 H 96 Room Air 03/19/22 04:30 03/19/22 04:30 03/19/22 04:30 03/19/22 04:30 03/18/22 16:41 03/18/22 16:41 Oxygen Delivery Method Room Air Weight: 81.374 kg Body Mass Index (BMI) 32.8 Intake & Output: Intake and Output for Last 24 Hours 03/17/22 03/18/22 03/19/22 23:59 23:59 23:59 Intake Total 1.1 / 1.1 1245.23 / 1245.23 Output Total 750 / 750 Balance 1.1 / 1.1 495.23 / 495.23 Lab / Micro Data Attestation: I reviewed the patient's lab results. Result Diagrams: 03/19/22 05:50 03/19/22 05:50 Labs: Laboratory Results - last 24 hr 03/19/22 05:50: Sodium 141, Potassium 3.8, Chloride 111 H, Carbon Dioxide 23.0, Anion Gap 7, BUN 9, Creatinine 0.59, Estim Creat Clear Calc 116.29, Est GFR (MDRD) Af Amer 160, Est GFR (MDRD) Non-Af 133, BUN/Creatinine Ratio 15.2, Glucose 75, Calcium 8.4 L, Total Bilirubin 0.20, AST 32, ALT 25, Alkaline Phosphatase 182 H, Total Protein 6.0 L, Albumin 2.2 L, Globulin 3.8, Albumin/Globulin Ratio 0.6 L 03/19/22 05:50: WBC 9.9, RBC 3.63 L, Hgb 10.9 L, Hct 33.0 L, MCV 90.9, MCH 30.0, MCHC 33.0, RDW Std Deviation 46.5 H, RDW Coeff of Jesus Manuel 13.8, Plt Count 216, MPV 11.5, Immature Gran % (Auto) 1.300 H, Neut % (Auto) 70.6 H, Lymph % (Auto) 18.8 L, [place] % (Auto) 6.6, Eos % (Auto) 2.2, Baso % (Auto) 0.5, Absolute Neuts (auto) 7.0, Absolute Lymphs (auto) 1.86, Nucleated RBC % 0 Physical Exam Const alert, oriented x3 and no apparent distress HEENT normocephalic Head and Scalp: atraumatic Neck full ROM Resp normal respiratory effort Cardio regular rate GI normal to inspection, nondistended, normoactive bowel sounds GI Narrative: Uterus 2 cm below umbilicus Back/Spine normal ROM Extremity normal to inspection Extremity Narrative: Minimal pedal edema Neuro no focal motor deficits and no sensory deficits noted Psych mental status grossly normal and affect normal Assessment & Plan (1) Pre-eclampsia: PLAN: day 1 status post . Complicated by preeclampsia without severe features based on elevated blood pressures and proteinuria. Reviewed diagnosis with patient this morning. Discussed that it is recommended for her to stay at least 48 hours if not longer depending on stability of blood pressures and symptoms. Discussed that she will need a blood pressure check next week in the office. Discussed risks of preeclampsia including stroke, [place], seizures. Patient understands risk. Very upset at needing to stay another day. Patient aware that if she were to leave today she would be leaving AGAINST MEDICAL ADVICE. She is discussing with her partner and will notify nursing. Understands all risks and recommendations. All questions answered. Patient and partner were in room for discussion.
[2022-03-19 09:32] VITALS: BP 132/74; PULSE 65; RESP 18; TEMP 36.6; O2SAT 97
[2022-03-19] MEDS: Acetaminophen 500 MG Tablet 1000 MG PO (09:38)
[2022-03-19 12:30] VITALS: BP 131/68; PULSE 73; RESP 18; TEMP 36.4
--- NOTE | 2022-03-19 15:14 | CASEMGMT ---
Social Work Reason for referral: hx of PPD History obtained from: chart review and MOB Met with MOB to complete assessment. Introduced self and role. FOB present in room and requested for assessment to be 1:1 with MOB. Both MOB and FOB agreed. MOB engaged in open conversation with this worker; calm, pleasant, friendly, appeared comfortable with baby. Discussed how MOB was doing/feeling overall. MOB expressed sadness and frustration with not being able to see her 4 year old, as current visiting policies are only 14 years of age and older are allowed to visit. MOB has reportedly not seen daughter for four days and was wanting to discharge home today. However, the Dr advised it would be AMA and recommending staying another night to ensure medically MOB and baby is safe/stable to discharge. MOB did agree to stay until medically discharged. SW empathized with frustration. Reframed to allowing time to foley with . MOB expressed excitement for two daughters to meet and being home. Household composition: JAROD and TANNER are legally for 4 years. Both live together with their first daughter, 4 years old, in a trailer they own. 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 TANNER has been in-between employment, but has started job week of 03/15/22. His job allowed for him to be present for delivery and following days of post-. TANNER will return to 8a-5p, M-F, job, 03/22/22. MOB reports no concerns with finances currently. supplies/transportation: no concerns Childcare: MOB reports to looking for childcare for 4 year old. MOB's sister and FOKayleigh's grandmother was babysitting first daughter and can assist with baby. Family support: MOB has relationship with her mother, but not father. MOB has strong relationship with MIL/JOSEFINA, who live across the street. Baby's grandparents are supportive and can assist when needed. Programs involved prior: WIC and [facility] used for first daughter. SW educated to reapplying for assistance for baby if financial situation changes. Substance Use/Alcohol Use/Tobacco Use: MOB denied for herself and FOKayleigh Mental Health History: PPD with first daughter. SW explored further with history. Provided supportive listening and emotional support throughout discussion. MOB explained the baby was the start of her marriage. MOB and FOB were having difficulty with communication, disagreements on how to raise the baby, boundaries with visitation, and self-care. JAROD recognized needing help with PPD after about two years and sought out counseling through [facility], via telephone sessions that worked with her work schedule. JAROD stated she was able to speak with the same therapist and it was successful. Throughout her recovery, this allowed her and FOB to improve their marriage. Both worked on having strong communication, taking time for 1:1 dates, and individual self-care. MOB explained the past year and a half has been much better, both are happier, and are stronger than ever in their marriage. Both are very excited for their baby. MOB denies starting on any medication for depression or anxiety. Denies need for medications at this time. JAROD expressed willingness to start therapy again, if needed, and has the insight to know the triggers and symptoms of PPD to identify needing help. SW praised MOB for recognizing the need and acceptance of seeking help at the first signs of PPD. SW educated and provided resources for PPD/A, FOB having PPD/A as well, shaken baby, safe sleep, counseling resources, depression and suicide help line. MOB denied any other concerns or questions. SW offered ongoing visits during remainder of stay if needed. MOB expressed appreciation. SW updated MOB's nurse. JAROD is stable to ME from a social work standpoint, and continues to agree to remain another night. Alanis Marquez, KELBY SAEEDW
[2022-03-19 16:30] VITALS: BP 123/74; PULSE 71; RESP 18; TEMP 36.5
[2022-03-19 20:01] VITALS: BP 134/77; PULSE 65; RESP 18; TEMP 36.8; O2SAT 95
[2022-03-20 02:01] VITALS: BP 121/73; PULSE 76; RESP 18; TEMP 36.3; O2SAT 97
[2022-03-20 08:09] VITALS: BP 124/70; PULSE 67; RESP 14; TEMP 36.6; O2SAT 97
--- NOTE | 2022-03-20 08:46 | PCM.PN.OB ---
Subjective Subjective day 2. Lochia minimal. No headaches, vision changes, chest pain, dyspnea, nausea/emesis. Objective Data Objective Data Vital Signs: Vital Signs Temp Pulse Resp BP Pulse Ox O2 Del Method 97.8 F 67 14 124/70 H 97 Room Air 03/20/22 08:09 03/20/22 08:09 03/20/22 08:09 03/20/22 08:09 03/20/22 08:09 03/20/22 08:09 Oxygen Delivery Method Room Air Weight: 81.374 kg Body Mass Index (BMI) 32.8 Intake & Output: Intake and Output for Last 24 Hours 03/18/22 03/19/22 03/20/22 23:59 23:59 23:59 Intake Total 1245.23 / 1245.23 Output Total 750 / 750 Balance 495.23 / 495.23 Lab / Micro Data Attestation: I reviewed the patient's lab results. Result Diagrams: 03/19/22 05:50 03/19/22 05:50 Physical Exam Const alert, oriented x3 and no apparent distress HEENT normocephalic Head and Scalp: atraumatic Neck full ROM Resp normal respiratory effort Cardio regular rate GI normal to inspection, nondistended, normoactive bowel sounds GI Narrative: Uterus 2 cm below umbilicus Back/Spine normal ROM Extremity normal to inspection Extremity Narrative: Minimal pedal edema Neuro no focal motor deficits and no sensory deficits noted Psych mental status grossly normal and affect normal Assessment & Plan (1) Pre-eclampsia: PLAN: day 2 status post . Complicated preeclampsia without severe features. Labs and blood pressures have been stable. Asymptomatic. Reviewed signs and symptoms of preeclampsia. Will discharge home today with follow-up next week in office for blood pressure check.
--- NOTE | 2022-03-20 08:47 | DCINST_ITS ---
Discharge Instructions Diet Discharge Diet: No restrictions Activity Discharge Activity: Return to Normal Activity and May Shower May resume sexual activity in: 4-6 weeks Weight Bearing Status: Weight bearing as tolerated Lifting Restrictions: No greater than 25 pounds Dressing / Incision Call your doctor if you observe: Fever of 101 or Higher, Change in Color, Inability to urinate, Using more than 1 pad per hour, Shortness of breath, Dizziness, Swelling in the ankles, Chest pain and Calf discomfort Follow Up Care Please Follow Up With: Arnaldo Badillo MD When: 1 week BP check and 6-week visit Test Results: Test results from this visit will be discussed in further detail at your follow- up appointment, if applicable. Discharge Plan Admission Admit Date/Time: 03/17/22 19:26 Primary Reason for Your Visit: Vaginal delivery, pre-eclampsia Attending Provider: Arnaldo Badillo Primary Care Provider: Care Physician,Anna Primary Discharge Orders/Prescriptions Prescriptions: No Action 1 tab PO.IVFORM DAILY Referrals / Follow Up: Care Physician,No Primary [Primary Care Provider] - Disposition Disposition (needs filled in before D/C Order can be placed): Home, Self Care
--- NOTE | 2022-03-20 08:47 | PCM.DC.SUM ---
Providers Date of Admission: 03/17/22 Primary Care Physician: No Primary Care Phys Reason For Visit: INDUCTION OF LABOR Diagnosis Discharge Diagnosis (1) Pre-eclampsia: Status: Acute Code(s): O14.90 - Unspecified pre-eclampsia, unspecified trimester Plan: day 1 status post . Complicated by preeclampsia without severe features based on elevated blood pressures and proteinuria. Reviewed diagnosis with patient this morning. Discussed that it is recommended for her to stay at least 48 hours if not longer depending on stability of blood pressures and symptoms. Discussed that she will need a blood pressure check next week in the office. Discussed risks of preeclampsia including stroke, [place], seizures. Patient understands risk. Very upset at needing to stay another day. Patient aware that if she were to leave today she would be leaving AGAINST MEDICAL ADVICE. She is discussing with her partner and will notify nursing. Understands all risks and recommendations. All questions answered. Patient and partner were in room for discussion. Medications at Discharge Home Medications 1 tab PO.IVFORM DAILY 03/17/22 Hospital Course Summary of Care Provided Hospital Course: 22-year-old female admitted for induction of labor for preeclampsia without severe features. Spontaneous vaginal delivery. Blood pressures and labs stable greater than 48h. Stable for discharge on day 2. Physical Exam Const alert, oriented x3 and no apparent distress HEENT normocephalic Head and Scalp: atraumatic Neck full ROM Resp normal respiratory effort Cardio regular rate GI normal to inspection, nondistended, normoactive bowel sounds GI Narrative: Uterus 2 cm below umbilicus Back/Spine normal ROM Extremity normal to inspection Extremity Narrative: Minimal pedal edema Neuro no focal motor deficits and no sensory deficits noted Psych mental status grossly normal and affect normal Weight / BMI Weight Weight: 81.374 kg Body Mass Index (BMI) 32.8 ABG / Lab / Microbiology Data Result Diagrams: 03/19/22 05:50 03/19/22 05:50 D/C Instructions Discharge Diet: No restrictions May resume sexual activity in: 4-6 weeks Weight Bearing Status: Weight bearing as tolerated Call your doctor if you observe: Fever of 101 or Higher, Change in Color, Inability to urinate, Using more than 1 pad per hour, Shortness of breath, Dizziness, Swelling in the ankles, Chest pain and Calf discomfort Please Follow Up With: Arnaldo Badillo MD When: 1 week BP check and 6-week visit Meaningful Use Info Meaningful Use Diagnoses (Choose all that apply): None applicable Discharge Plan Admission Admit Date/Time: 03/17/22 19:26 Primary Reason for Your Visit: Vaginal delivery, pre-eclampsia Attending Provider: Arnaldo Badillo Primary Care Provider: Care Physician,No Primary Instructions Patient Instructions: After a Vaginal Discharge Orders/Prescriptions Prescriptions: No Action 1 tab PO.IVFORM DAILY Referrals / Follow Up: Care Physician,No Primary [Primary Care Provider] - Disposition Disposition (needs filled in before D/C Order can be placed): Home, Self Care
== END 2022-03-20 09:35 | disposition home or self-care (01) | DRG 807 ==
PROVIDERS: Student in an Organized Health Care Education/Training Program; Admitting Provider Obstetrics & Gynecology; Visit Provider Obstetrics & Gynecology
DX: O14.04 Mild to moderate pre-eclampsia, complicating childbirth (principal); Z37.0 Single live birth; F17.210 Nicotine dependence, cigarettes, uncomplicated; O77.0 Labor and delivery complicated by meconium in amniotic fluid; Z3A.37 37 weeks gestation of pregnancy; O99.334 Smoking (tobacco) complicating childbirth
CPT/HCPCS: 59025; 59050; 76815; 80053; 81001; 82570; 83615; 84156; 85025; 86850; 86900; 86901; 99221; 99406; J7120; G0378

== ENCOUNTER → 2022-10-13 | Outpatient (CLI) | payer OTHER, SELFPAY ==
[2022-10-19 17:11] LABS: HPV Reflexed? NOT INDICATED
== END | disposition home or self-care (01) ==
LOC: LABSPEC 09:33
PROVIDERS: Visit Provider Obstetrics & Gynecology
DX: Z12.4 Encounter for screening for malignant neoplasm of cervix (principal)
CPT/HCPCS: 88175; G0145